=== PATIENT | female | born 1940 | race Caucasian/White ===

== ENCOUNTER 2024-09-03 05:52 | Day surgery (SDC) | payer BC, MEDICARE, SELFPAY ==
[2024-08-24 08:53] VITALS: BMI 28.5
[2024-09-03] VITALS (20 sets, daily range): BP systolic 98–155; BP diastolic 54–89; BMI 28.5
[2024-09-03 06:54] LABS: Glucose - Point of Care 209 mg/dl (70-99)
[2024-09-03 09:01] LABS: ACT-LR - POC 282 Seconds (116-155)
--- NOTE | 2024-09-03 09:21 | ITS.CL.ABL ---
[employer] [facility] [employer] - Ablation
Ablation
Procedure Report:
ELECTROPHYSIOLOGY ABLATION STUDY
�
DATE:: September 03, 2024�����������������������������REFERRING: Dr. Inocencio Matamoros
�
INDICATION: Persistent supraventricular tachycardia in the form of atrial fibrillation.��Refractory to amiodarone
�
HISTORY: See H and P.��As above
�
ANTIARRHYTHMIC DRUG: Amiodarone
�
PRE-PROCEDURE BALWINDER: No atrial thrombus
�
PRESENTING RHYTHM: A-fib
�
'TIME-OUT':��called and confirmed.
�
SEDATION/ANESTHESIA:��provided via the anesthesia department using general anesthesia (LMA).
�
INTRAVENOUS/ARTERIAL ACCESS:
Right femoral venous - 8Fr
Left femoral venous - 8 Fr, 6 Fr
[id number] given to each groin
Ultrasound guidance for bilateral femoral vein access was utilized by me to obtain access with demonstration of normal anatomy
CHADS-VASC Score:
�
HAS-Bled Score
�
PROCEDURE:
1.��A decapolar CS catheter was placed within the CS for mapping and pacing.��This was also used as the reference catheter for the 3-D map.
�
2. The intracardiac ultrasound catheter was positioned in the RA to identify the FO for targeting of transseptal puncture, assist��in identification of the pulmonary vein ostia, monitoring pre and post ablation pulmonary vein flow velocities,
monitoring for 'bubble' formation during RF application as a sign of thermal injury,��and to monitor for pericardial effusion during mapping and ablation procedure.���Left atrial size, LV ejection fraction, and pulmonary vein flows were monitored
pre and post ablation procedure. The other valves were inspected and found to be free of significant regurgitation or stenosis.
�
3.��Half of the calculated heparin bolus was administered prior to the first transeptal puncture.��Transseptal puncture was performed to diagnose RA and LA pressure so that safety of LA mapping and ablation could be further assessed, and to access
the left atrium and pulmonary veins for mapping and ablation.��This entailed advancing an 16 Bengali sheath with dilator/RF needle apparatus and withdrawing both (monitoring intracardiac ultrasound, fluoroscopy and tip pressure) with the tip oriented
toward the atrial septum.��The fossa was engaged and crossed with the RF wire. �Left atrial catheter position was confirmed by pressure monitoring (RA mean pressure 8 mm Hg and LA mean presure 14 mm Hg), LA saturation (99%),��as well as
fluoroscopy.��The sheath was advanced over the dilator and positioned in the left atrium.���The remainder of the calculated heparin bolus was administered and heparin was
infused to maintain ACT at 300 -350 seconds throughout the case.
�
4.��RA pacing was performed via the proximal decapolar poles and LA pacing was performed via the distal decapolr poles.
�
5. A quadrapolar catheter was first positioned at the His position for His Bundle recording which was tagged via the 3-D Navex sytem, and then passed to the RVA for RV pacing and recording.
�
6. The multipolar and PFA catheter were placed in each of the LIPV, LSPV, RSPV and the RIPV.��The veins were isolated at baseline. There was ostial antral isolation of left superior pulmonary vein so additional ablation was performed in the antrum
and the ostium of the left superior pulmonary vein.
�
7.��Next, a 3-D map was created using Navex.���A 3-D reconstructed CT image was compared to the 3-D Navex map to assist in anatomic interpretation, mapping and ablation.��The CT image and the NavX image were fused.
�
8. A total of 24 lesions were given to the posterior wall and the antrum of the left superior pulmonary vein. Electrical silence in all 4 pulmonary veins and the left atrial posterior wall as well as roof and floor was present post ablation and
the patient was cardioverted with 1 200 J synchronized biphasic shock to sinus bradycardia. Entrance next block was confirmed in all 4 pulmonary veins and the left atrial posterior wall. Basic cycle length was 1500 ms but improved with ephedrine
and lightening of anesthesia. 0.2 mg of glycopyrrolate was given prior to ablation.
�
9. No other nonpulmonary vein triggers for atrial fibrillation were noted.
�
�
TOTAL FLOURO TIME: 12.7 minutes 123 mGy
�
TOTAL RF DURATION: 0 minutes
�
REVERSAL OF HEPARIN: 35 mg of protamine, slow IV administration
�
COMPLICATIONS:
None
Intracardiac US shows no pericardial effusion post ablation.
�
SUMMARY:��
Complex left atrial mapping and ablation.
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
�
RECOMMENDATIONS:
1. Out of bed 4 hours
2. Resume anticoagulation
3.� Discontinue amiodarone and lower metoprolol 50 mg daily
4.��Consider same-day discharge
�
Copy to: Dr. Inocencio Matamoros
�
[2024-09-03 12:49] LABS: Glucose - Point of Care 228 mg/dl (70-99)
--- NOTE | 2024-09-03 12:50 | W.PN.UPDATE ---
Update Note
Progress Note Update
84 yo WF s/p PVI (same day). She denies cp, sob, julián diet, b/l groins c/d/i, EKG SR. She will continue OAC Eliquis dose tonight at home. She will stop Amiodarone and decrease metoprolol to 50mg bid. Activity restrictions reviewed. She will f/u
[facility] in 3 mo and continue cardiac care with Dr. Matamoros. She is for d/c home after 2pm if groins stable and voiding.
SUMMARY:��
Complex left atrial mapping and ablation.
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
== END 2024-09-03 14:23 | disposition home or self-care (01) ==
LOC: CATH 05:52
PROVIDERS: ATTENDING PHYSICIAN Internal Medicine Cardiovascular Disease; FAMILY PHYSICIAN Internal Medicine; OTHER PHYSICIAN Internal Medicine Cardiovascular Disease
DX: I48.19 Other persistent atrial fibrillation (principal); I47.10 Supraventricular tachycardia, unspecified; R06.02 Shortness of breath; I35.8 Other nonrheumatic aortic valve disorders; I25.10 Atherosclerotic heart disease of native coronary artery without angina pectoris; I10 Essential (primary) hypertension; E78.5 Hyperlipidemia, unspecified; E03.9 Hypothyroidism, unspecified; E11.9 Type 2 diabetes mellitus without complications; Z79.01 Long term (current) use of anticoagulants; Z79.84 Long term (current) use of oral hypoglycemic drugs
CPT/HCPCS: C1732; C1894; C1730; C1769; C1892; C1759; 82962; 85347; 93005; 93656; 93657; C1733; C1766